=== PATIENT | male | born 1990 | race American Indian/Alaskan Native ===

== ENCOUNTER 2017-06-14 14:58 | Emergency (ER) | payer OTHER ==
[2017-06-14 15:48] VITALS: BP 104/67
--- NOTE | 2017-06-14 17:29 | Emergency Department Report ---
HPI - General Chief Complaint: Urogenital-Male Time Seen by Provider: 06/14/17 17:27 - HPI HPI: patient c/o dysuria, no hematuria, no discharge, no n/v. no chest pain or sob. ED Past Medical Hx - Past Medical History Previous Medical History?: No Hx Hypertension: No - Surgical History Past Surgical History?: No - Social History Smoking Status: Never Smoker Substance Use Type: Alcohol, Marijuana ED Review of Systems ROS: Stated complaint: DISCOMFORT IN PENIS Other details as noted in HPI Comment: All other systems reviewed and negative Cardiovascular: denies: chest pain, palpitations, dyspnea on exertion Endocrine: denies: flushing Gastrointestinal: denies: abdominal pain Genitourinary: urgency, dysuria. denies: hematuria, discharge Physical Exam - Physical Exam Vital Signs: Vital Signs 06/14/17 15:46 Temperature 98.5 F Pulse Rate 67 Respiratory 18 Rate Blood Pressure 104/67 O2 Sat by Pulse 100 Oximetry Physical Exam: GENERAL APPEARANCE: Well developed, well nourished, alert and cooperative, and appears to be in no acute distress. HEAD: normocephalic. EYES: PERRL, EOMI. Fundi normal, vision is grossly intact. EARS: External auditory canals and tympanic membranes clear, hearing grossly intact. NOSE: No nasal discharge. THROAT: Oral cavity and pharynx normal. No inflammation, swelling, exudate, or lesions. Teeth and gingiva in good general condition. NECK: Neck supple, non-tender without lymphadenopathy, masses or thyromegaly. CARDIAC: Normal S1 and S2. No S3, S4 or murmurs. Rhythm is regular. There is no peripheral edema, cyanosis or pallor. Extremities are warm and well perfused. Capillary refill is less than 2 seconds. No carotid bruits. LUNGS: Clear to auscultation and percussion without rales, rhonchi, wheezing or diminished breath sounds. ABDOMEN: Positive bowel sounds. Soft, nondistended, nontender. No guarding or rebound. No masses. ED Course Vital Signs 06/14/17 15:46 Temperature 98.5 F Pulse Rate 67 Respiratory 18 Rate Blood Pressure 104/67 O2 Sat by Pulse 100 Oximetry Critical care attestation.: If time is entered above; I have spent that time in minutes in the direct care of this critically ill patient, excluding procedure time. ED Disposition Condition: Stable Referrals: PRIMARY CARE, [Primary Care Provider] - 3-5 Days
[2017-06-14 18:01] LABS: Amorphous Crystals,Urine Few; Bacteria,Urine 1+ /HPF (Negative); Bilirubin,Urine NEG (Negative); Blood,Urine NEG (Negative); Color,Urine Yellow (Yellow); Mucus,Urine 2+ /HPF; Protein,Urine <15 mg/dL mg/dL (Negative); Urobilinogen,Urine < 2.0 mg/dL (<2.0)
== END 2017-06-14 18:15 | disposition home or self-care (01) ==
LOC: ED 14:58
DX: R30.0 Dysuria (principal); F12.10 Cannabis abuse, uncomplicated
CPT/HCPCS: 81001; 99283